=== PATIENT | male | born 1980 | race American Indian/Alaskan Native ===

== ENCOUNTER 2020-12-01 16:56 | Emergency (ER) | payer MEDICAID, OTHER ==
--- NOTE | 2020-12-01 18:12 | EDM.PDOC ---
ED HPI GENERAL MEDICAL PROBLEM - General Chief Complaint: Drug or Alcohol Abuse Stated Complaint: DT'S ALCOHOL WITHDRAWALS Time Seen by Provider: 12/01/20 18:04 Source of Information: Reports: Patient, Police, RN Notes Reviewed History Limitations: Reports: No Limitations - History of Present Illness INITIAL COMMENTS - FREE TEXT/NARRATIVE: 40-year-old gentleman presents emergency department today via law enforcement he is currently incarcerated, he last used alcohol Sunday night was incarcerated at that time. He states he starting to have withdrawal symptoms did suffer h usband hallucination earlier in the halfway today. The [facility] does have a alcohol detoxification program to handle delirium tremor - Related Data Allergies Allergy/AdvReac Type Severity Reaction Status Date / Time No Known Allergies Allergy Verified 12/01/20 17:10 Home Meds: Home Meds Insulin Aspart [NovoLOG] 0 unit SQ WITHMEALSANDBED 12/01/20 [History] LORazepam [Ativan] 1 mg PO ASDIRECTED 12/01/20 [History] atorvaSTATin [Lipitor] 10 mg PO BEDTIME 12/01/20 [History] cloNIDine [Catapres] 0.1 mg PO BEDTIME 12/01/20 [History] lisinopriL [Prinivil] 10 mg PO DAILY 12/01/20 [History] Past Medical History Cardiovascular History: Reports: High Cholesterol, Hypertension Social & Family History - Tobacco Use Tobacco Use Status *Q: Current Every Day Tobacco User Years of Tobacco use: 26 Packs/Tins Daily: 1 - Caffeine Use Caffeine Use: Reports: Energy Drinks - Alcohol Use Days Per Week of Alcohol Use: 7 Number of Drinks Per Day: 15 Total Drinks Per Week: 105 - Recreational Drug Use Recreational Drug Use: Yes Drug Use in Last 12 Months: Yes Recreational Drug Type: Reports: Marijuana/Hashish Recreational Drug Use Frequency: Weekly ED ROS GENERAL - Review of Systems Review Of Systems: See Below Constitutional: Reports: No Symptoms HEENT: Reports: No Symptoms Respiratory: Reports: No Symptoms Cardiovascular: Reports: No Symptoms GI/Abdominal: Reports: No Symptoms Musculoskeletal: Reports: No Symptoms Neurological: Reports: Tremors Psychiatric: Reports: Hallucinations ED EXAM, GENERAL - Physical Exam Exam: See Below Exam Limited By: No Limitations General Appearance: Alert, WD/WN, No Apparent Distress, Other (No visible tremors appreciated) Eye Exam: Bilateral Eye: Normal Inspection Neck: Normal Inspection, Supple, Non-Tender, Full Range of Motion Respiratory/Chest: No Respiratory Distress, Lungs Clear, Normal Breath Sounds, No Accessory Muscle Use, Chest Non-Tender Cardiovascular: Regular Rate, Rhythm, No Murmur GI/Abdominal: Soft, Non-Tender Back Exam: Normal Inspection, Full Range of Motion. No: CVA Tenderness (R), CVA Tenderness (L) Extremities: Normal Inspection, No Pedal Edema Course - Vital Signs Last Recorded V/S: Last Vital Signs Temp 98.3 F 12/01/20 17:17 Pulse 100 12/01/20 17:17 Resp 16 12/01/20 17:17 BP 160/109 H 12/01/20 17:17 Pulse Ox 94 L 12/01/20 17:17 - Orders/Labs/Meds Labs: Laboratory Tests 12/01/20 12/01/20 12/01/20 Range/Units 18:14 18:23 18:23 WBC 6.1 (4.5-11.0) K/uL RBC 5.50 (4.30-5.90) M/uL Hgb 16.6 H (12.0-15.0) g/dL Hct 49.6 (40.0-54.0) % MCV 90 (80-98) fL MCH 30 (27-31) pg MCHC 34 (32-36) % Plt Count 193 (150-400) K/uL Neut % (Auto) 49 (36-66) % Lymph % (Auto) 39 (24-44) % Lea % (Auto) 10 H (2-6) % Eos % (Auto) 1 L (2-4) % Baso % (Auto) 1 (0-1) % Sodium 137 L (140-148) mmol/L Potassium 4.3 (3.6-5.2) mmol/L Chloride 100 (100-108) mmol/L Carbon Dioxide 26 (21-32) mmol/L Anion Gap 15.3 H (5.0-14.0) mmol/L BUN 10 (7-18) mg/dL Creatinine 0.8 (0.8-1.3) mg/dL Est Cr Clr Drug Dosing 121.13 mL/min Estimated GFR (MDRD) > 60 (>60) Glucose 114 H (74-106) mg/dL Calcium 10.0 (8.5-10.1) mg/dL Total Bilirubin 1.4 H (0.2-1.0) mg/dL AST 60 H (15-37) U/L ALT 58 (12-78) U/L Alkaline Phosphatase 170 H (46-116) U/L Ammonia (11-32) mmol/L Total Protein 8.8 H (6.4-8.2) g/dL Albumin 4.4 (3.4-5.0) g/dL Globulin 4.4 H (2.3-3.5) g/dL Albumin/Globulin Ratio 1.0 L (1.2-2.2) Urine Color Yellow (YELLOW) Urine Appearance Clear (CLEAR) Urine pH 6.0 (5.0-8.0) Ur Specific Steger 1.010 (1.008-1.030) Urine Protein Negative (NEGATIVE) mg/dL Urine Glucose (UA) Negative (NEGATIVE) mg/dL Urine Ketones Negative (NEGATIVE) mg/dL Urine Occult Blood Negative (NEGATIVE) Urine Nitrite Negative (NEGATIVE) Urine Bilirubin Negative (NEGATIVE) Urine Urobilinogen 1.0 (0.2-1.0) EU/dL Ur Leukocyte Esterase Negative (NEGATIVE) Urine RBC Not seen (0-5) Urine WBC Not seen (0-5) Ur Epithelial Cells Rare Amorphous Sediment Not seen Urine Bacteria Not seen Urine Mucus Not seen Ethyl Alcohol mg/dL 12/01/20 12/01/20 Range/Units 18:23 18:23 WBC (4.5-11.0) K/uL RBC (4.30-5.90) M/uL Hgb (12.0-15.0) g/dL Hct (40.0-54.0) % MCV (80-98) fL MCH (27-31) pg MCHC (32-36) % Plt Count (150-400) K/uL Neut % (Auto) (36-66) % Lymph % (Auto) (24-44) % Lea % (Auto) (2-6) % Eos % (Auto) (2-4) % Baso % (Auto) (0-1) % Sodium (140-148) mmol/L Potassium (3.6-5.2) mmol/L Chloride (100-108) mmol/L Carbon Dioxide (21-32) mmol/L Anion Gap (5.0-14.0) mmol/L BUN (7-18) mg/dL Creatinine (0.8-1.3) mg/dL Est Cr Clr Drug Dosing mL/min Estimated GFR (MDRD) (>60) Glucose (74-106) mg/dL Calcium (8.5-10.1) mg/dL Total Bilirubin (0.2-1.0) mg/dL AST (15-37) U/L ALT (12-78) U/L Alkaline Phosphatase (46-116) U/L Ammonia 15 (11-32) mmol/L Total Protein (6.4-8.2) g/dL Albumin (3.4-5.0) g/dL Globulin (2.3-3.5) g/dL Albumin/Globulin Ratio (1.2-2.2) Urine Color (YELLOW) Urine Appearance (CLEAR) Urine pH (5.0-8.0) Ur Specific Steger (1.008-1.030) Urine Protein (NEGATIVE) mg/dL Urine Glucose (UA) (NEGATIVE) mg/dL Urine Ketones (NEGATIVE) mg/dL Urine Occult Blood (NEGATIVE) Urine Nitrite (NEGATIVE) Urine Bilirubin (NEGATIVE) Urine Urobilinogen (0.2-1.0) EU/dL Ur Leukocyte Esterase (NEGATIVE) Urine RBC (0-5) Urine WBC (0-5) Ur Epithelial Cells Amorphous Sediment Urine Bacteria Urine Mucus Ethyl Alcohol < 3 mg/dL Departure - Departure Time of Disposition: 19:16 Disposition: DC/Tfer to Court of Law En 21 Condition: Fair Clinical Impression: Alcohol abuse - Discharge Information Instructions: Alcohol Use Disorder Referrals: PCP,None [Primary Care Provider] - Forms: ED Department Discharge Additional Instructions: Follow-up with your primary care as needed Sepsis Event Note (ED) - Evaluation Sepsis Screening Result: No Definite Risk - Focused Exam Vital Signs: Vital Signs Temp Pulse Resp BP Pulse Ox 12/01/20 17:17 98.3 F 100 16 160/109 H 94 L 12/01/20 17:09 98.3 F 100 16 160/109 H 94 L - Assessment/Plan Plan: Assessment Acuity = acute Site and laterality = alcohol abuse and dependence Etiology = EtOH Manifestations = none Location of injury = Home Lab values = CBC CMP urinalysis all within normal limits, alcohol was negative Plan I did review lab work with him he is okay returning back to the halfway and he will continue to use the detox protocol at the [facility] This note was dictated using [employer] voice recognition software please call with any questions on syntax or grammar.
== END 2020-12-01 19:24 ==
LOC: JP.ED 16:56
DX: F10.10 Alcohol abuse, uncomplicated (principal); I10 Essential (primary) hypertension; E78.00 Pure hypercholesterolemia, unspecified; Z72.0 Tobacco use; Z79.899 Other long term (current) drug therapy
CPT/HCPCS: 36415; 80053; 80307; 81001; 82140; 85025; 99283